=== PATIENT | male | born 1970 | race Caucasian/White ===

== ENCOUNTER 2019-01-05 01:27 | Emergency (ER) | payer BC ==
[~2019-01-05] VITALS: Ht 170.2 cm; Wt 79.7 kg
[2019-01-05] MEDS ORDERED: IBUPROFEN 800 MG TABLET PO STA (01:35)
--- NOTE | 2019-01-05 01:44 | NUR ---
PT HAS COMPLAINT OF FEVER, SHAKES, PRODUCTIVE COUGH WITH BROWN SPUTUM, AND HEADACHE. VSS. UPDATED ON POC
[2019-01-05] MEDS ORDERED: IBUPROFEN 800 MG TABLET ONE (01:51)
[2019-01-05] MEDS ORDERED: ACETAMINOPHEN 500 MG TABLET ONE (01:52)
[2019-01-05] MEDS ORDERED: ACETAMINOPHEN 325 MG TABLET PO ONE (02:00)
[2019-01-05 02:12] LABS: RAPID INFLUENZA A POSITIVE (Negative); RAPID INFLUENZA B Negative (Negative)
[2019-01-05] MEDS ORDERED: AZITHROMYCIN 500 MG TABLET PO STA (02:20)
[2019-01-05] MEDS ORDERED: OSELTAMIVIR 75 MG CAPSULE PO ONE (02:30)
[2019-01-05] MEDS ORDERED: AZITHROMYCIN 250 MG TABLET ONE (02:41)
[2019-01-05] MEDS ORDERED: OSELTAMIVIR 75 MG CAPSULE ONE (02:41)
[2019-01-05 02:50] VITALS: BP 146/86
--- NOTE | 2019-01-05 02:51 | NUR ---
TEMP RECHECK 102. VSS. UPDATED ON POC
[2019-01-05] MEDS ORDERED: OXYcodone/APAP 5/325MG TABLET PO ONE (03:00)
== END 2019-01-05 03:13 | disposition home or self-care (01) ==
LOC: ED 03:10
DX: J10.1 Influenza due to other identified influenza virus with other respiratory manifestations (principal); J20.9 Acute bronchitis, unspecified; B96.89 Other specified bacterial agents as the cause of diseases classified elsewhere
CPT/HCPCS: 71046; 87400; 99284